=== PATIENT | male | born 1985 | race Caucasian/White ===

== ENCOUNTER → 2020-09-09 | Outpatient (CLI) | payer BC ==
--- NOTE | 2020-09-09 15:43 | REP ---
INDICATION: CHRONIC MAX SINUSITIS. COMPARISON: None. TECHNIQUE: Axial CT images with multiplanar reformations. FINDINGS: There is lobulated mucosal thickening in the floors of the maxillary sinuses, greater on the right. There is a few scattered areas of sinus mucosal thickening seen throughout the ethmoid sinuses. The frontal and sphenoid sinuses are clear. There is an asymmetric prominent ethmoid air cell on the left, may be associated with the superior turbinate, does not appear obstructive. Nasal septum is midline with a small left nasal spur. Dentition appears unremarkable. IMPRESSION: Lobulated mucosal thickening at the floors of the maxillary sinuses, greater on the right. Dentition appears unremarkable. Anatomic variant left ethmoid air cell. <Electronically signed by Jamel Cho > 09/09/20 [id number]
== END ==
LOC: M RAD 15:07
PROVIDERS: ATTEND Otolaryngology
DX: J32.0 Chronic maxillary sinusitis (principal)

== ENCOUNTER 2023-03-17 06:49 | Day surgery (SDC) | payer BC ==
[~2023-03-17] VITALS: Ht 182.9 cm; Wt 97.5 kg
[~2023-03-17 06:49] MED LIST: FLUT50SP17; OMEP40CA5 PO; ceFAZolin SOD 2 GM in IV 1 EA IV ONE
[2023-03-17] MEDS ORDERED: dexmedeTOMIDine (4MCG/ML)200MCG/50ML BTL (PRECEDEX) As Ordered ONE (08:45)
[2023-03-17] MEDS ORDERED: ACETAMINOPHEN 1000MG 100ML IV BAG As Ordered ONE (08:45)
[2023-03-17] MEDS ORDERED: ROCURONIUM BROMIDE 50MG/5ML VIAL As Ordered ONE (08:45)
[2023-03-17] MEDS ORDERED: LIDOCAINE 2% 100MG/5ML SDV (FOR ANES.) As Ordered ONE (08:45)
[2023-03-17] MEDS ORDERED: fentaNYL 250 MCG/5 ML INJECTION As Ordered ONE (08:45)
[2023-03-17] MEDS ORDERED: ONDANSETRON 4MG 2ML VIAL As Ordered ONE (08:45)
[2023-03-17] MEDS ORDERED: MIDAZOLAM INJ 2MG/2ML VIAL As Ordered ONE (08:45)
[2023-03-17] MEDS ORDERED: propofoL 200 MG/20 ML VIAL As Ordered ONE (08:45)
[2023-03-17] MEDS ORDERED: SUGAMMADEX SODIUM 500 MG/5 ML VIAL (BRIDION) As Ordered ONE (08:45)
[2023-03-17] MEDS ORDERED: LR 1,000 ML IV SCH ×2 (08:55→09:30)
[2023-03-17] MEDS ORDERED: ePHEDrine SULFATE 25 MG/5 ML(5MG/ML) SYRINGE As Ordered ONE (09:00)
[2023-03-17] MEDS ORDERED: KETOROLAC 60MG 2ML VIAL As Ordered ONE (09:11)
[2023-03-17] MEDS ORDERED: hydrALAZINE 20MG/ML 1ML VIAL As Ordered ONE (09:12)
[2023-03-17] MEDS ORDERED: fentaNYL 100 MCG/2 ML INJECTION IV PRN (09:30)
[2023-03-17] MEDS ORDERED: oxyCODONE 5MG TAB PO PRN (09:30)
[2023-03-17] MEDS ORDERED: ONDANSETRON 4MG 2ML VIAL IV PRN (09:30)
[2023-03-17 11:25] VITALS: BP 129/82; TEMP 97.9; O2SAT 96
== END 2023-03-17 11:41 | disposition home or self-care (01) ==
LOC: M SDC 06:49
PROVIDERS: ATTEND Surgery
DX: K80.10 Calculus of gallbladder with chronic cholecystitis without obstruction (principal); K21.9 Gastro-esophageal reflux disease without esophagitis; Z79.899 Other long term (current) drug therapy; Z88.8 Allergy status to other drugs, medicaments and biological substances
CPT/HCPCS: 47562; 88304; J0131; J0360; J0665; J0690; J1100; J1885; J2250; J2405; J3010

== ENCOUNTER → 2024-05-07 | Outpatient (CLI) | payer BC ==
[~2024-05-07] MED LIST changes: -FLUT50SP17; +FLUTISP; -ceFAZolin SOD 2 GM in IV 1 EA IV ONE
[2024-05-07 15:32] LABS: BASO % 0.7 % (0.0-1.0); EOS # 0.1 10^3/uL (0.0-0.5); EOS % 2.5 % (0.0-3.0); HEMATOCRIT 42.2 % (42.0-52.0); HEMOGLOBIN 14.9 g/dl (13.5-17.5); LYMPH % 46.7 % (24.0-44.0); MEAN CORPUSCULAR HEMOGLOBIN 31.1 pg (27.0-33.0); MEAN CORPUSCULAR HGB CONC 35.3 g/dl (32.0-36.5); MEAN CORPUSCULAR VOLUME 88.1 fl (80.0-96.0); MONO # 0.4 10^3/uL (0.0-0.8); NEUTROPHILS # 1.8 10^3/uL (1.5-8.5); NEUTROPHILS % 40.4 % (36.0-66.0); PLATELET COUNT, AUTOMATED 157 10^3/uL (150-450); RED BLOOD COUNT 4.79 10^6/uL (4.30-6.10); WHITE BLOOD COUNT 4.3 10^3/uL (4.0-10.0)
[2024-05-07 15:45] LABS: MONO SCRN NEGATIVE (NEGATIVE)
[2024-05-07 16:05] LABS: HIV 1&2 SCREEN NEGATIVE (NEGATIVE)
== END ==
LOC: M PLALAB 13:36
PROVIDERS: ATTEND Internal Medicine Hematology
DX: D72.820 Lymphocytosis (symptomatic) (principal)